=== PATIENT | male | born 1965 | race Caucasian/White ===

== ENCOUNTER 2022-05-08 07:31 | Day surgery (SDC) | payer BC ==
[2022-05-08] MEDS ORDERED: NA CHLORIDE 0.9% 1,000 ML ONE (08:20)
[2022-05-08 08:40] LABS: MPV 8.3 fL (7.6-11.3)
[2022-05-08 08:43] VITALS: TEMP 98.3; BMI 25.2
[2022-05-08 08:45] LABS: Protime INR 1.1
[2022-05-08] MEDS ORDERED: FLUMAZENIL 0.1 MG/ML (5 mL VIAL) IV ONE (09:18)
[2022-05-08] MEDS ORDERED: MIDAZOLAM HCL 2 MG/2 ML INJ ONE (09:18)
[2022-05-08] MEDS ORDERED: FENTANYL CITR 100 MCG/2 ML ONE (09:18)
[2022-05-08] MEDS ORDERED: NALOXONE 0.4 MG/ML VIAL ONE (09:19)
--- NOTE | 2022-05-08 11:19 | RAD REPORT ---
EXAM DESCRIPTION: CT - Lung Biopsy Perc w/CT - 05/08/2022 10:36 am CLINICAL HISTORY: right lung mass COMPARISON: No comparisons FINDINGS: Preoperative diagnosis: Right upper lobe lung mass Post operative diagnosis: Same Conscious Sedation: 2 milligram Versed, 100 microgram fentanyl. Patient was continuously monitored by nursing staff. Contrast used: NONE Estimated blood loss: less than 5 mL Specimens: 2 x 18 gauge core samples of the right upper lobe mass. Postprocedure imaging demonstrated no complications. Samples were given to pathology for analysis. Th e patient tolerated the procedure without immediate complication and transferred to the recovery room in stable condition. IMPRESSION: Technically successful CT-guided core biopsy of a right upper lobe mass. No immediate co mplications. Conscious sedation was utilized. All CT scans are performed using dose optimization technique as appropriate and may include automated exposure control or mA/KV adjustment according to patient size.
--- NOTE | 2022-05-08 11:50 | RAD REPORT ---
EXAM DESCRIPTION: RAD - Chest Single View - 05/08/2022 11:43 am CLINICAL HISTORY: S/P LUNG BIOPSY COMPARISON: Chest Pa And Lat (2 Views) dated 04/22/2022; Chest Pa And Lat (2 Views) dated 02/26/2018; Chest Single View dated 08/20/2016; Chest Single View dated 01/16/2016 FINDINGS: Lines: None. Lungs: Unchanged right lung mass. Pleural: No significant pleural effusions or pneumothorax. Cardiac: The heart size is within normal limits. Bones: No acute fractures. Other: IMPRESSION: No pneumothorax following right-sided lung biopsy. Right lung mass again noted.
--- NOTE | 2022-05-08 12:56 | RAD REPORT ---
EXAM DESCRIPTION: RAD - Chest Single View - 05/08/2022 12:35 pm CLINICAL HISTORY: S/P LUNG BIOPSY COMPARISON: Portable chest 05/08/2022 TECHNIQUE: AP portable chest image was obtained 05/08/2022 12:35 pm . FINDINGS: There remains no identifiable right-sided pneumothorax. Right-sided lung mass is unchanged . No pulmonary hemorrhage or abnormal pleural fluid collection. IMPRESSION: No pneumothorax.
[2022-05-08 13:02] VITALS: O2SAT 100
[2022-05-08 13:08] VITALS: BP 130/69
== END 2022-05-08 12:45 | disposition home or self-care (01) ==
LOC: DS 07:31
PROVIDERS: ATTEND Family Medicine
PROC: 0BDK4ZX Extraction of Right Lung, Percutaneous Endoscopic Approach, Diagnostic (ICD-10-PCS; principal; 2022-05-08)
DX: R91.8 Other nonspecific abnormal finding of lung field (principal)
CPT/HCPCS: 32408; 36415; 85049; 85610; 88305; 85730; 77012; 71045 ×2; J2250; J3010; J7030; J2310

== ENCOUNTER 2022-05-23 06:39 | Day surgery (SDC) | payer BC ==
[2022-05-23] MEDS ORDERED: Phenylephrine HCl 10 MG/ML 1 ML VIAL ONE (07:04)
[2022-05-23] MEDS ORDERED: NA CHLORIDE 0.9% 500 ML ONE (07:04)
[2022-05-23] MEDS: LIDOCAINE 4% TOP SOLUTION ONE ×2 (07:20→07:37)
[2022-05-23] MEDS ORDERED: LIDOCAINE 1% MPF 30 ML VIAL ONE (07:46)
[2022-05-23] MEDS ORDERED: LIDOCAINE VISCOUS 2% SOLN 15 ML UDC ONE (07:46)
[2022-05-23] MEDS ORDERED: propofoL 200 MG/20 ML VIAL IV ONE ×2 (08:14→08:39)
[2022-05-23] MEDS ORDERED: LIDOCAINE 1% MPF 5 ML VIAL ONE (08:14)
[2022-05-23] MEDS ORDERED: GLYCOPYRROLATE 0.2 MG/ML SYR ONE (08:14)
--- NOTE | 2022-05-23 08:38 | P.OP ---
Date of Service: 05/23/22 (Bronchoscopy with right upper lobe transbronchial biopsies BAL and lavage including a via brushings) Findings and Operative Technique Patient is 57 years of age history of colonic cancer was found to have an incidental right upper lobe posterior segmental lung mass denies any pulmonary complaint does not smoke After obtaining informed consent from the patient he was premedicated by anesthesia finding normal vocal cords normal trachea normal Ashley normal right and left bronchial anatomy no endobronchial lesions visible multiple biopsies were obtained from the right upper lobe posterior segment patient tolerated the procedure very well anesthesia at the bedside vital signs all stable and not experience any complications during the procedure
--- NOTE | 2022-05-23 08:49 | RAD REPORT ---
EXAM DESCRIPTION: RAD - FLUORO-GUIDE FOR BRONCH [id number] - 05/23/2022 8:42 am FINDINGS: There were 3 portable C-arm views submitted from fluoroscopic assisted bronchoscopy. Fluoro time was 3 minutes 53 seconds.
--- NOTE | 2022-05-23 10:03 | RAD REPORT ---
EXAM DESCRIPTION: RAD - Chest Single View - 05/23/2022 9:52 am CLINICAL HISTORY: S/P BRONCH R/O PNEUMOTHORAX COMPARISON: Portable May 08 TECHNIQUE: AP portable chest image was obtained 05/23/2022 9:52 am . FINDINGS: Expiration chest film shows no post bronchoscopy pneumothorax. No abnormal hemorrhage or a cute finding of the pleural or parenchymal spaces. Heart and vasculature are normal. IMPRESSION: No post bronchoscopy pneumothorax.
[2022-05-23 13:12] VITALS: BP 121/79; TEMP 97.9; O2SAT 97
== END 2022-05-23 10:30 | disposition home or self-care (01) ==
LOC: OR 06:39
PROVIDERS: ATTEND Internal Medicine Sleep Medicine
PROC: 0B9C8ZX Drainage of Right Upper Lung Lobe, Via Natural or Artificial Opening Endoscopic, Diagnostic (ICD-10-PCS; 2022-05-23)
PROC: 0BD48ZX Extraction of Right Upper Lobe Bronchus, Via Natural or Artificial Opening Endoscopic, Diagnostic (ICD-10-PCS; 2022-05-23)
PROC: 0BDC8ZX Extraction of Right Upper Lung Lobe, Via Natural or Artificial Opening Endoscopic, Diagnostic (ICD-10-PCS; principal; 2022-05-23 08:00)
DX: R91.8 Other nonspecific abnormal finding of lung field (principal)
CPT/HCPCS: 31629; 31624; 88108 ×2; 82947; 88305 ×3; 87015; 87206; 87116; 87102; 71045; 76000; J2704 ×2; J2370; J7040